=== PATIENT | male | born 1935 | race Asian ===

== ENCOUNTER 2025-04-24 22:58 | Emergency (ER) | payer OTHER, SELFPAY ==
[2025-04-24] VITALS (7 sets, daily range): BP systolic 49–83; BP diastolic 38–68
[2025-04-24] MEDS: NSS 1000 IV (23:15)
[2025-04-24 23:20] LABS: Hematocrit 43.7 % (39.0-52.0); Hemoglobin 14.3 g/dL (13.0-18.0); Mean Corp Hgb Conc. 32.7 g/dL (33.0-37.0); Mean Corpuscular Volume 94.6 fL (80.0-94.0); Nucleated Red Blood Cells % 0 % (-); Platelet Count 153 10^3/uL (130-400); Red Cell Dist. Width 13.0 % (11.5-14.5)
[2025-04-24 23:45] LABS: APTT 23.7 Sec (23.4-35.0); INR 1.13; PT 14.7 Sec (11.4-14.6)
[2025-04-25] LABS: ALT (SGPT) 107 U/L (0-50); AST (SGOT) 509 U/L (17-59); Albumin 3.9 g/dl (3.5-5.0); Alkaline Phosphatase 54 U/L (38-126); Blood Urea Nitrogen 31 mg/dl (9-20); Calcium 8.8 mg/dl (8.4-10.2); Carbon Dioxide 16 mmol/L (22-30); Chloride 108 mmol/L (98-107); Glucose 252 mg/dl (70-99); Potassium 5.1 mmol/L (3.5-5.1); Sodium 136 mmol/L (135-145); Total Protein 6.5 g/dl (6.3-8.2); eGFR 29.72
[2025-04-25 00:30] VITALS: BP 55/14
[2025-04-25] MEDS: LEVOPHED 250 IV (00:32)
[2025-04-25 00:43] LABS: Troponin I 38.000 ng/ml
[2025-04-25 00:46] VITALS: BP 61/35
[2025-04-25 00:56] VITALS: BP 81/17
--- NOTE | 2025-04-25 01:57 | ED.GENMED ---
History of Present Illness
General
Chief Complaint: Chest Pain
Source: patient, spouse, family and ambulance crew
Exam Limitations: clinical condition
Time Seen by Provider: 04/24/25 23:01
Nursing documentation reviewed up to this point in time: agreed with
History of Present Illness
History of Present Illness:
Note:
CHIEF COMPLAINT(S)
Chest pain and shortness of breath.
HISTORY OF PRESENT ILLNESS
The patient is an 89-year-old male with a significant cardiac history who presents tonight with complaints of chest pain and shortness of breath. According to the family, the patient appeared pale this evening. He has a notable past medical history,
including myocardial infarction, cardiomyopathy, coronary artery disease, heart arrhythmia, hypertension, hyperlipidemia, and mitral stenosis. He also has a [employer] pacemaker due to a complete heart block previously and his pacemaker was
placed in 2008 and replaced in 2018. He underwent CABG x3, cardiac stenting in 2007, iliac stent in 2010, and vascular surgery in 2015. On evaluation, the patient was found to be hypotensive and exhibited ronchi in the lungs. Pulses were not
palpable. A CT scan was subsequently performed.
PAST MEDICAL AND SURGICAL HISTORY
The patient has a history of myocardial infarction, cardiomyopathy, coronary artery disease, heart arrhythmia, hypertension, hyperlipidemia, mitral stenosis, and had complete heart block in the past. Surgical history includes CABG x3, cardiac
stenting in 2007, pacemaker placement in 2008 with replacement in 2017, iliac stent placement in 2010, and vascular surgery in 2015.
ADDITIONAL HISTORY OBTAINED FROM SOURCES OTHER THAN THE PATIENT
The patient�s family, specifically his and son who assisted in translation, reported that he appeared pale and confirmed his extensive cardiac history.
CHRONIC MEDICAL CONDITIONS SIGNIFICANTLY AFFECTING CARE
The patient�s chronic conditions include myocardial infarction, cardiomyopathy, coronary artery disease, heart arrhythmia, hypertension, hyperlipidemia, and mitral stenosis.
REVIEW OF SYSTEMS
- Cardiovascular: Reports of chest pain, history of arrhythmia, coronary artery disease.
- Respiratory: Shortness of breath, ronchi present on examination.
- General: Pale appearance noted by family and examination.
PHYSICAL EXAM
General: Alert but pale, no acute distress.
Skin: Pale, warm, dry.
Head: Normocephalic, atraumatic.
Neck: Supple, trachea midline.
Eye Ears, Nose, Mouth and Throat: Oral mucosa moist.
Cardiovascular: Hypotensive, non-palpable pulses.
Respiratory: Ronchi present, respirations are non-labored.
Gastrointestinal: Abdomen nondistended.
Back: Normal range of motion, normal alignment.
Musculoskeletal: Normal range of motion, normal strength.
Neurological: Alert and oriented to person, place, time, and situation, no focal neurological deficit observed.
Psychiatric: Cooperative, appropriate mood & affect.
PROBLEM LIST
Acute:
- Chest pain
- Shortness of breath
- Hypotension
- Ronchi in lungs
Chronic:
- Myocardial infarction
- Cardiomyopathy
- Coronary artery disease
- Heart arrhythmia
- Hypertension
- Hyperlipidemia
- Mitral stenosis
DIFFERENTIAL DIAGNOSIS
The Differential Diagnosis includes, in no particular order and is not limited to:
- Acute coronary syndrome
- Pulmonary embolism
- Congestive heart failure exacerbation
- Pneumonia
- Chronic obstructive pulmonary disease exacerbation
- Cardiac arrhythmia
- Myocardial infarction
- Aortic dissection
- Pericarditis
- Pleural effusion
CARE-UPDATE
04/25/25 - 03:22
Patient did not tolerate BiPAP well, requiring frequent adjustments to the mask. Communication facilitated through a translation phone led to the decision for patient intubation, consented by the patient and in presence of his . Intubation was
performed without complications, maintaining stable oxygen saturation. Subsequently, the patient experienced bradycardia progressing to cardiac arrest. Immediate initiation of HLS protocols included multiple epinephrine rounds. Unfortunately,
resuscitation efforts were unsuccessful, resulting in pronounced at 16:00. Doubling Machine Operator Markie Graves was informed and authorized the release of the body. The certificate has been completed. Family has been informed with the son on his way to
the hospital.
Disposition:
SUMMARY OF ENCOUNTER
The patient, an 89-year-old male with a significant cardiac history, presented to the emergency department with complaints of chest pain and shortness of breath. Notably, the patient appeared pale and was hypotensive with non-palpable pulses on
initial examination. He had a history of myocardial infarction, cardiomyopathy, coronary artery disease, heart arrhythmia, hypertension, hyperlipidemia, mitral stenosis, and had previously received a pacemaker. During his time in the emergency
department, he was intubated due to intolerance of BiPAP and subsequent worsening of his respiratory status. Despite efforts, the patient experienced bradycardia and then cardiac arrest. Resuscitation efforts, which included multiple rounds of
epinephrine, were unsuccessful, and the patient was pronounced at 16:00. The electrogalvanizing machine operator, Markie Graves, was informed and gave authorization for the release of the body. The family was informed and present during the resuscitation efforts.
DISPOSITION
The patient was discharged as at 1:16 a.m.
DIAGNOSIS
Cardiac arrest, resulting in .
Past History
Past History
ED Past Medical History: Arrthythmia, CAD, Hypercholesterolemia, NIDDM, Valvular disease (M/T/P mild regurg), Other (ischemic cardiomyopathy) and Other (Mod LVH)
ED Past Surgical History: Cardiac
Social History
Tobacco: Non-smoker
Personal:
Living: with family
Phy Exam
Physical Exam
Physical Exam:
.
Scores
Heart Score for Chest Pain Patients
STEMI patient?: Not applicable
Sepsis
Sepsis Screening
Sepsis Assessment: Septic Shock
Sepsis Screening: Lactate >2mmol/L, Lactate >/=4mmol/L, Hypotension, Urine output- <0.5ml/kg/hr for 2 consecutive hours, Worsening O2 Saturation, Need for mechanical ventilation or BiPAP, Sustained Hypotension-SBP <90,MAP<65, or SBP decrease 40mmHg
or more and Vasopressor support required
Sepsis Screen
Sepsis Screen: Septic Shock
Date: 04/25/25
Time: 06:58
Course
Orders/Labs/Results
Orders:
Orders
04/24/25 23:00
Electrocardiogram (*1) Urgent
Reason for Study: Chest Pain
Cardiac Monitoring- Treatment ONCE
EKG- Treatment ONCE
IV Insert/Care/Rem.- Treatment PRN
O2 Therapy [RESP] Urgent
Titrate/Wean O2 to maintain O2 sat greater than (%): 90
Special Instructions: Maintain sats >/=90%
Pulse Ox/spot Check [RESP] Urgent
Quantity: 1
Special Instructions: ON ROOM AIR
04/24/25 23:03
CR Chest Portable - 1 View Urgent
Comment:
Reason For Exam: cp
Reason Study Needs to be Portable: Unable to Transport
04/24/25 23:08
Complete Blood Count/With Diff Urgent
Comprehensive Metabolic Panel Urgent
Lactic Acid Q4H
Comment: CANCEL 2nd LACTIC ACID IF 1st LACTIC ACID IS LESS THAN 2
NT-proBNP Urgent
PTT Urgent
Prothrombin Time Urgent
Troponin I Urgent
Blood Culture Q30M
HERIBERTO Source: Blood/Venous
Specimen Description:
04/24/25 23:22
Blood Culture Q30M
HERIBERTO Source: Blood/Venous
Specimen Description:
04/24/25 23:43
CT Chest/abd/pelvis Angio W/wo Urgent
Comment:
Reason For Exam: diminished pulses in b/l arms
04/25/25 00:30
NORepinephrine 4 MG/250 ML [Levophed] 4 mg in 250 ml IV PER PROTOCOL
Initial dose in mcg/min, then titrate:: 2
Titrate to keep:: MAP > 65 mmHg
Titrate by mcg/min:: 1-2 mcg/min
Frequency of titrations (minutes):: 5
Maximum dose in ICU in mcg/min:: 30
Maximum dose in IMU in mcg/min:: 8
Maximum dose in IVU in mcg/min:: 4
Begin to taper infusion when:: Remained at goal for 4hrs
Taper by mcg/min:: 1-2 mcg/min
Frequency of taper (minutes) if patient maintains goal:: 30
Taper to off?: Yes
If infusion off & no longer maintaining goal:: Contact Provider
04/25/25 00:51
Propofol 1,000,000 Mcg/100 ml [Diprivan] 1,000,000 mcg in 100 ml .ROUTE .STK-MED
04/25/25 00:54
EKG [Electrocardiogram (*1)] Urgent
Reason for Study: Chest Pain
EKG- Treatment ONCE
04/25/25 03:59
0.9% Sodium Chloride 1000 ml [Nss] 1,000 ml IV BOLUS
04/25/25 04:01
0.9% Sodium Chloride 1000 ml [Nss] 1,000 ml IV BOLUS
Abnormal Lab Results
04/24/25
23:08
WBC 14.2 H 10^3/uL
(4.8-10.8)
RBC 4.62 L 10^6/uL
(4.70-6.10)
MCV 94.6 H fL
(80.0-94.0)
MCHC 32.7 L g/dL
(33.0-37.0)
MPV 10.9 H fL
(7.4-10.4)
Abs Immat Gran (auto) 0.2 H 10^3/uL
(0-0.05)
Absolute Neuts (auto) 7.3 H 10^3/uL
(1.4-6.5)
Absolute Lymphs (auto) 5.3 H 10^3/uL
(1.2-3.4)
Absolute Monos (auto) 1.1 H 10^3/uL
(0.1-0.6)
Immature Gran % 1.6 H %
(0-0.5)
PT 14.7 H Sec
(11.4-14.6)
Chloride 108 H mmol/L
(98-107)
Carbon Dioxide 16 L mmol/L
(22-30)
BUN 31 H mg/dl
(9-20)
Creatinine 2.1 H mg/dL
(0.7-1.3)
Glucose 252 H mg/dl
(70-99)
Lactic Acid 6.9 H* mmol/L
(0.7-2.0)
AST 509 H* U/L
(17-59)
ALT 107 H U/L
(0-50)
Troponin I 38.000 H* ng/ml
04/24/25 23:08
04/24/25 23:08
Vital Signs
Initial and Last Documented VS:
Initial Vital Signs
Temp BP
98.9 F 68/38
04/24/25 23:00 04/24/25 23:00
Last Documented Vital Signs
Temp Pulse Resp BP Pulse Ox
98.9 F 85 21 81/17 100
04/24/25 23:00 04/25/25 01:15 04/25/25 01:15 04/25/25 00:56 04/25/25 00:30
Procedures
Intubations
Procedure completed by: Myself
Method of Intubation: glidescope
Tube size (cm): 7.5
Placement confirmed by: auscutation, capnography and direct visualization
Breath sounds after intubation: equal
Intubation complications: no complications
*Radiology
Radiology exam reviewed: radiology read reviewed
*Pulse Oximetry
Oxygen Mode of Delivery: BiPAP
Patient hypoxic: yes
*Critical Care Note
Total Time (30-74mins, 75-104mins- exclusive of procedures): 58 (Critical care statement: A total of 58 minutes of critical care time was provided for this patient. This time is separate from time utilized to perform the aforementioned documented
procedures. Aggregate critical care time includes only time during which I was engaged in work directl)
Update Note
Update Note:
Spoke with diagnostic powder blender Dr. Reggie Cordoba. He reviewed the case and recommended speaking to interventional cardiology. I did call interventional cardiology. Both powder blender were helpful during this case.
NAME: MIGUEL LY
DATE OF EXAM: 04/25/2025
Patient No: [id number]
Physician: ERIKA^Sameera
Date of : 1935
Past Medical History (entered by Technologist):
Reason For Exam (entered by Technologist):
Other Notes (entered by Technologist): pt c/o chest pain and sob tonight. pt appeared pale. pt has hx of [place]. diminshed pulses in bilateral arms
No prior
Additional Information (per Vision Radiologist):
CTA CHEST (with/without IV contrast)
CTA ABDOMEN/PELVIS (with/without IV contrast)
IMPRESSION:
AORTA
Mildly ectatic ascending aorta at 4.1 cm diameter.
No descending or abdominal aortic aneurysm.
Heterogeneous opacification of aortic arch and proximal descending aorta most consistent with mixing artifact from early contrast opacification.
No definite evidence of an aortic dissection flap, but evaluation is somewhat limited due to the artifactual subuniform opacification.
The aortic arch branches are patent.
Abdominal aortic visceral branches appear grossly patent, but evaluation significantly limited due to bolus timing and early contrast opacification.
Right external iliac artery stent noted.
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
CHEST
Cardiomegaly with contrast reflux into IVC/hepatic veins indicating right heart dysfunction.
Status post CABG.
Implanted cardiac pacemaker.
Marked pulmonary fibrosis.
Enlarged main pulmonary arteries consistent with pulmonary hypertension.
Diffuse smooth interstitial thickening and lower lung peribronchial ground glass opacification suspicious for a degree of superimposed pulmonary edema. Cannot exclude infection/pneumonia.
No pleural effusion or pneumothorax.
Marked respiratory motion artifact, but no identified large central pulmonary embolism within the main or lobar pulmonary arteries.
ABDOMEN/PELVIS
Severe colonic diverticulosis without diverticulitis.
No intestinal obstruction or free air.
Normal appendix.
2.5 cm low-density mass in the pancreatic tail, potentially a cyst or IPMN, but malignancy not excluded.
Mild bilateral renal atrophy. No hydronephrosis.
Additional findings: Enlarged prostate. Possible hemorrhagic/proteinaceous left renal cyst, but inconclusive. Chronic DDD/DJD. Bilateral pars defects at L5.
Case discussed with Dr. Arrieta at 12:30 AM Eastern time.
0130: Spoke with Allen graves, from the office of the corner who released the body. He requested a facesheet be faxed to [phone]
ED Attending Note
-
Portions of this chart may have been created with voice recognition software.� Occasional wrong word or��sound alike� substitutions may have occurred due to the inherent limitations of voice recognition software.
Discharge Plan
Departure
Patient Disposition:
Date of Disposition: 04/25/25
Time of Disposition: 02:27
Condition: Critical
Discharge Problem:
Cardiac arrest, Non-ST elevation (NSTEMI) myocardial infarction, Chronic kidney disease, stage III (moderate), CAD (coronary artery disease), VENTILATOR DEPENDENT RESPIRATOR FAILURE
Prescriptions:
No Action
rosuvastatin [Crestor] 10 MG tablet
20 mg PO QPM
insulin glargine [Lantus U-100 Insulin] 100 UNITS/1 ML solution
15 units SC HS
Patient Comments:
PT POOR HISTORIAN INSULIN
OTHER MEDS VERIFIED BY ACTUAL MED BOTTLES FROM HOME
isosorbide mononitrate 60 MG tablet extended release 24 hr
60 mg PO DAILY
insulin aspart U-100 [Novolog FlexPen U-100 Insulin] 100 UNITS/ML insulin pen
6 - 12 units SQ BID PRN (Reason: SLIDING SCALE COVERAGE)
Patient Comments:
sliding scale WITH BREAKFAST & DINNER
carvedilol phosphate 20 MG capsule, ER multiphase 24 hr
20 mg PO QPM
enalapril maleate 20 MG tablet
10 mg PO DAILY
apixaban [Eliquis] 5 MG tablet
2.5 mg PO BID
clopidogrel 75 MG tablet
75 mg PO DAILY Qty: 30 0RF
pantoprazole 40 MG tablet,delayed release (DR/EC)
40 mg PO DAILY Qty: 30 0RF
Referrals:
Iván Akers DO [Family Provider, Family Practice]
Interventions
Interventions:
*Risk Screen - Suicide Last Done: 04/24/25 23:25
*General Assessment Last Done: 04/24/25 23:25
*Neglect/Abuse Screening Last Done: 04/24/25 23:25
*ED- Fall Risk Assessment Last Done: 04/24/25 23:25
*ED COVID-19 Vaccine History Last Done: 04/24/25 23:25
*ED Influenza Vaccine History Last Done: 04/24/25 23:25
*Nursing Disposition Last Done: 04/25/25 03:41
ED- Cardiac Assessment Last Done: 04/24/25 23:29
Discharge Date and Time
Discharge Date/Time: 04/25/25 03:44
Print Language: TURKMEN
[2025-04-25] MEDS: NSS 1000 IV (04:01)
== END 2025-04-25 03:44 | disposition expired ==
LOC: EMR 22:58
PROVIDERS: EMERGENCY PHYSICIAN Student in an Organized Health Care Education/Training Program; FAMILY PHYSICIAN Family Medicine
DX: I46.9 Cardiac arrest, cause unspecified (principal); R06.02 Shortness of breath; I21.4 Non-ST elevation (NSTEMI) myocardial infarction; I25.10 Atherosclerotic heart disease of native coronary artery without angina pectoris; I13.0 Hypertensive heart and chronic kidney disease with heart failure and stage 1 through stage 4 chronic kidney disease, or unspecified chronic kidney disease; E11.22 Type 2 diabetes mellitus with diabetic chronic kidney disease; N18.30 Chronic kidney disease, stage 3 unspecified; I44.2 Atrioventricular block, complete; I27.20 Pulmonary hypertension, unspecified; I25.5 Ischemic cardiomyopathy; E78.00 Pure hypercholesterolemia, unspecified; I05.0 Rheumatic mitral stenosis; I48.91 Unspecified atrial fibrillation; I38 Endocarditis, valve unspecified; J84.10 Pulmonary fibrosis, unspecified; K57.30 Diverticulosis of large intestine without perforation or abscess without bleeding; K86.9 Disease of pancreas, unspecified; N40.0 Benign prostatic hyperplasia without lower urinary tract symptoms; N28.1 Cyst of kidney, acquired; M51.379 Other intervertebral disc degeneration, lumbosacral region without mention of lumbar back pain or lower extremity pain; I25.2 Old myocardial infarction; Z95.0 Presence of cardiac pacemaker; Z95.5 Presence of coronary angioplasty implant and graft; Z95.1 Presence of aortocoronary bypass graft; Z87.891 Personal history of nicotine dependence
CPT/HCPCS: 99291; 31500; 92950; 96374; 96361 ×2; 93288; 71045; 71275; 74174; 80053; 83605; 83880; 84484; 85025; 85610; 85730; 87040; 93005; Q9967